=== PATIENT | female | born 1995 | race Caucasian/White ===

== ENCOUNTER 2019-01-08 01:58 | Emergency (ER) | payer BC, OTHER ==
[2019-01-08] MEDS ORDERED: Sodium Chloride 0.9% 1000 ML 1,000 ML IV STA ×2 (02:08→03:32)
[2019-01-08] MEDS ORDERED: ROCEPHIN 2 Gm-D5w 50ML BAG** 2 G/50 ML IVPB IV STA (02:14)
[2019-01-08] MEDS ORDERED: Sodium Chloride 0.9% 1000 ML 1,000 ML ONE ×3 (02:27→04:58)
[2019-01-08 02:37] LABS: BASOPHIL % 0.2 % (0.0-0.4); Basophil (Absolute #) 0.02 (0-0.4); Eosinophil % 0.6 % (0.00-5.0); Eosinophil (Absolute #) 0.07 (0-0.5); Granulocytes % 76.7 % (36.0-66.0); Hematocrit 41.1 % (35-47); Hemoglobin 13.6 gm/dl (12.0-16.0); Lymphocyte (Absolute #) 1.69 (1.0-4.6); Lymphocytes % 13.8 % (24.0-44.0); Mean Corpuscular Hemoglobin 31.8 pg (26-32); Mean Corpuscular Hgb Concent. 33.1 g/dl (32-36); Mean Platelet Volume 9.6 fl (6-9.5); Monocyte (Absolute #) 1.06 (0.0-1.3); Monocytes % 8.7 % (0.0-12.0); Platelet Count 280 K/mm3 (150-450); Red Blood Count 4.28 M/mm3 (4.1-5.4); Red Cell Distribution Width 13.4 % (11.5-14.0); White Blood Count 12.2 K/mm3 (4.0-10.5)
[2019-01-08] MEDS ORDERED: ROCEPHIN 2 Gm-D5w 50ML BAG** 2 G/50 ML IVPB IV ONE (02:37)
[2019-01-08 02:44] LABS: Appearance CLOUDY (CLEAR); Bilirubin NEGATIVE (NEGATIVE); Blood SMALL Ery/ul (0-5); Epithelial Cells RARE /HPF (FEW); Glucose NEGATIVE (NEGATIVE); Ketones NEGATIVE (NEGATIVE); Leukocyte Esterase LARGE (NEGATIVE); Mucus SLIGHT /HPF (NEGATIVE); Nitrite NEGATIVE (NEGATIVE); Protein,Urine Dip 100 (Negative); Specific Gravity 1.015 (1.005-1.025); Urobilinogen NEGATIVE mg/dL (0-1); WBC >100 /HPF (0-5)
[2019-01-08 03:21] LABS: ALBUMIN 5.1 g/dL (3.5-5.0); ALKALINE PHOSPHATASE 36 U/L (38-126); ANION GAP 18.4 MEQ/L (5-15); BLOOD UREA NITROGEN 20 mg/dL (7-17); CHLORIDE 103 mmol/L (98-107); Calcium 10.6 mg/dL (8.4-10.2); Carbon Dioxide 24 mmol/L (22-30); Creatinine 1 0.59 mg/dL (0.52-1.04); Glucose 83 mg/dL (74-106); Potassium 4.4 mmol/L (3.5-5.1); SGOT/AST 44 U/L (14-36); SGPT/ALT 57 U/L (0-35); SODIUM 141 mmol/L (137-145); Total Protein 8.8 g/dL (6.3-8.2)
[2019-01-08 03:47] VITALS: PULSE 134
[2019-01-08] MEDS ORDERED: TORAdol 30 mg Injection IV ONE (04:57)
[2019-01-08] MEDS ORDERED: TORAdol 30 mg Injection ONE (04:58)
--- NOTE | 2019-01-08 05:06 | ERPHSYRPT ---
- History of Present Illness Source: patient Exam Limitations: no limitations Patient Subjective Stated Complaint: Left sided flank pain Triage Nursing Assessment: Patient ambulated into ED and transferred self to bed. Patient A+O X 3. Patient skin pink, warm and dry. Patient complains of left sided flank pain radiating down to urethra 8/10. Patient complains of urgency and frequency upon urination. Abdomen round and soft with Hypoactive BS X 4. Lungs clear a/p tamar. Patient states her temp prior to coming 101.7. Physician History: Pt is a 23 y/o female with h/o dysuria, frequency and urgency for about 3 weeks. Pt was taking Azo OTC, with no improvement. Today the pain was worse and was radiating from the L flank down to suprapubic area. Pt denies F/C/S. No SOB or cough. No chest pain or palpitations. No N/V/D. Timing/Duration: week(s) Activites at Onset: none Quality: aching, cramping, sharpness Onset Location: left flank Pain Radiation: LLQ, suprapubic Severity of Pain-Max: moderate Severity of Pain-Current: moderate Prior abdominal problems: none Sexual intercourse history: non-contributory Modifying Factors: Improves With: analgesics, position Associated Symptoms: chills, dysuria, lower back pain Allergies/Adverse Reactions: No Known Drug Allergies Allergy (Verified 01/08/19 02:06) Hx Tetanus, Diphtheria Vaccination/Date Given: Yes Hx Influenza Vaccination/Date Given: Yes Hx Pneumococcal Vaccination/Date Given: No - Review of Systems Constitutional: Chills, Malaise Eyes: No Symptoms Ears, Nose, & Throat: No Symptoms Respiratory: No Cough, No Dyspnea Cardiac: No Chest Pain, No Edema, No Syncope Abdominal/Gastrointestinal: Abdominal Pain (suprapubic on the L.), No Nausea, No Vomiting, No Diarrhea Genitourinary Symptoms: Dysuria, Frequency, Urgency, Flank Pain (on L) Musculoskeletal: No Back Pain, No Neck Pain - Past Medical History Pertinent Past Medical History: Yes Endocrine Medical History: Diabetes Type II Psycho-Social History: Anxiety, Depression Other Medical History: pcos - Past Surgical History Past Surgical History: Yes Neuro Surgical History: No Pertinent History Cardiac: No Pertinent History Respiratory: No Pertinent History Gastrointestinal: No Pertinent History Genitourinary: No Pertinent History Musculoskeletal: No Pertinent History Female Surgical History: No Pertinent History Other Surgical History: tonsillectomy - Social History Smoking Status: Current every day smoker How long have you smoked: 10 years Exposure to second hand smoke: Yes Drug Use: none Patient Lives Alone: No - Female History Hx Last Menstrual Period: 2 months ago Hx Now: No - Nursing Vital Signs Nursing Vital Signs: Initial Vital Signs Temperature 99.8 F 01/08/19 02:07 Pulse Rate 147 H 01/08/19 02:07 Respiratory Rate 20 01/08/19 02:07 Blood Pressure 129/90 01/08/19 02:07 O2 Sat by Pulse Oximetry 100 01/08/19 02:07 Pain Scale Pain Intensity 8 - Physical Exam General Appearance: no apparent distress, alert Eye Exam: PERRL/EOMI, eyes nml inspection Ears, Nose, Throat Exam: normal ENT inspection, TMs normal, pharynx normal, moist mucous membranes Neck Exam: normal inspection, non-tender, supple, full range of motion Respiratory Exam: normal breath sounds, lungs clear, No respiratory distress Cardiovascular Exam: regular rate/rhythm, normal heart sounds, normal peripheral pulses Gastrointestinal/Abdomen Exam: soft, tenderness (of L flank and LLQ with suprapubic discomfort), No mass Back Exam: normal inspection, normal range of motion, No CVA tenderness, No vertebral tenderness Extremity Exam: normal inspection, normal range of motion, pelvis stable Neurologic Exam: alert, oriented x 3, cooperative, risk and insurance consultant II-XII nml as tested, normal mood/affect, sensation nml, No motor deficits Skin Exam: normal color, warm, dry Lymphatic Exam: No adenopathy SpO2: 99 - Course Nursing assessment & vital signs reviewed: Yes - CT Exams Abdomen/Pelvis CT Interpretation: Tele-radiologist Report (L hydronephrosis, L renal calculi) Ordered Tests: Active Orders 24 hr Category Date Time Status IV Insertion STAT Care 01/08/19 02:08 Active ABDOMEN AND PELVIS W/0 CONTRAS [CT] Stat Exams 01/08/19 02:09 Taken BLOOD CULTURE Stat Lab 01/08/19 03:25 Received CBC W DIFF Stat Lab 01/08/19 02:41 Completed CMP Stat Lab 01/08/19 02:41 Completed CULTURE,URINE Stat Lab 01/08/19 02:41 Received HCG,QUALITATIVE URINE Stat Lab 01/08/19 02:41 Completed UA W/RFX UR CULTURE Stat Lab 01/08/19 02:41 Completed Medication Summary Discontinued Medications Generic Name Dose Route Start Last Admin Trade Name Ben PRN Reason Stop Dose Admin Sodium Chloride 1,000 mls @ 999 mls/hr 01/08/19 02:08 01/08/19 02:35 Sodium Chloride 0.9% 1000 Ml IV 01/08/19 03:08 999 mls/hr .Q1H1M STA Administration Ceftriaxone Sodium/Dextrose 2 g in 50 mls @ 100 mls/hr 01/08/19 02:14 02:47 Rocephin 2 Gm-D5w 50ml Bag IV 01/08/19 02:43 100 mls/hr STAT STA 100 mls/hr Administration Sodium Chloride Confirm 01/08/19 02:27 Sodium Chloride 0.9% 1000 Ml Administered 01/08/19 02:28 Dose 1,000 mls @ ud .ROUTE .STK-MED ONE Ceftriaxone Sodium/Dextrose Confirm 01/08/19 02:37 Rocephin 2 Gm-D5w 50ml Bag Administered 01/08/19 02:38 Dose 2 g in 50 mls @ ud IV .STK-MED ONE Sodium Chloride 1,000 mls @ 999 mls/hr 01/08/19 03:32 01/08/19 03:45 Sodium Chloride 0.9% 1000 Ml IV 01/08/19 04:32 999 mls/hr .Q1H1M STA Administration Sodium Chloride Confirm 01/08/19 03:41 Sodium Chloride 0.9% 1000 Ml Administered 01/08/19 03:42 Dose 1,000 mls @ ud .ROUTE .STK-MED ONE Ketorolac Tromethamine 30 mg 01/08/19 04:57 Toradol 30 Mg Injection IV 01/08/19 04:58 STAT ONE Lab/Rad Data: Laboratory Result Diagrams 01/08/19 02:41 01/08/19 02:41 Laboratory Results 01/08/19 01/08/19 01/08/19 Range/Units 02:41 02:41 02:41 WBC (4.0-10.5) K/mm3 RBC (4.1-5.4) M/mm3 Hgb (12.0-16.0) gm/dl Hct (35-47) % MCV (78-100) fl MCH (26-32) pg MCHC (32-36) g/dl RDW (11.5-14.0) % Plt Count (150-450) K/mm3 MPV (6-9.5) fl Gran % (36.0-66.0) % Eos # (Auto) (0-0.5) Absolute Lymphs (auto) (1.0-4.6) Absolute Monos (auto) (0.0-1.3) Lymphocytes % (24.0-44.0) % Monocytes % (0.0-12.0) % Eosinophils % (0.00-5.0) % Basophils % (0.0-0.4) % Absolute Granulocytes (1.4-6.9) Basophils # (0-0.4) Sodium 141 (137-145) mmol/L Potassium 4.4 (3.5-5.1) mmol/L Chloride 103 (98-107) mmol/L Carbon Dioxide 24 (22-30) mmol/L Anion Gap 18.4 H (5-15) MEQ/L BUN 20 H (7-17) mg/dL Creatinine 0.59 (0.52-1.04) mg/dL Estimated GFR > 60.0 ML/MIN Glucose 83 (74-106) mg/dL Calcium 10.6 H (8.4-10.2) mg/dL Total Bilirubin 0.70 (0.2-1.3) mg/dL AST 44 H (14-36) U/L ALT 57 H (0-35) U/L Alkaline Phosphatase 36 L (38-126) U/L Serum Total Protein 8.8 H (6.3-8.2) g/dL Albumin 5.1 H (3.5-5.0) g/dL Urine Color YELLOW (YELLOW) Urine Appearance CLOUDY (CLEAR) Urine pH 8.0 (5-6) Ur Specific [place] 1.015 (1.005-1.025) Urine Protein 100 (Negative) Urine Ketones NEGATIVE (NEGATIVE) Urine Blood SMALL (0-5) Jeremi/ul Urine Nitrite NEGATIVE (NEGATIVE) Urine Bilirubin NEGATIVE (NEGATIVE) Urine Urobilinogen NEGATIVE (0-1) mg/dL Ur Leukocyte Esterase LARGE (NEGATIVE) Urine WBC (Auto) >100 (0-5) /HPF Urine RBC (Auto) 11-15 (0-2) /HPF U Epithel Cells (Auto) RARE (FEW) /HPF Urine Bacteria (Auto) NONE (NEGATIVE) /HPF Urine Mucus (Auto) SLIGHT (NEGATIVE) /HPF Urine Culture Reflexed YES (NO) Urine Glucose NEGATIVE (NEGATIVE) mg/dL Urine HCG, Qual NEGATIVE (Negative) 01/08/19 Range/Units 02:41 WBC 12.2 H (4.0-10.5) K/mm3 RBC 4.28 (4.1-5.4) M/mm3 Hgb 13.6 (12.0-16.0) gm/dl Hct 41.1 (35-47) % MCV 96.0 (78-100) fl MCH 31.8 (26-32) pg MCHC 33.1 (32-36) g/dl RDW 13.4 (11.5-14.0) % Plt Count 280 (150-450) K/mm3 MPV 9.6 H (6-9.5) fl Gran % 76.7 H (36.0-66.0) % Eos # (Auto) 0.07 (0-0.5) Absolute Lymphs (auto) 1.69 (1.0-4.6) Absolute Monos (auto) 1.06 (0.0-1.3) Lymphocytes % 13.8 L (24.0-44.0) % Monocytes % 8.7 (0.0-12.0) % Eosinophils % 0.6 (0.00-5.0) % Basophils % 0.2 (0.0-0.4) % Absolute Granulocytes 9.40 H (1.4-6.9) Basophils # 0.02 (0-0.4) Sodium (137-145) mmol/L Potassium (3.5-5.1) mmol/L Chloride (98-107) mmol/L Carbon Dioxide (22-30) mmol/L Anion Gap (5-15) MEQ/L BUN (7-17) mg/dL Creatinine (0.52-1.04) mg/dL Estimated GFR ML/MIN Glucose (74-106) mg/dL Calcium (8.4-10.2) mg/dL Total Bilirubin (0.2-1.3) mg/dL AST (14-36) U/L ALT (0-35) U/L Alkaline Phosphatase (38-126) U/L Serum Total Protein (6.3-8.2) g/dL Albumin (3.5-5.0) g/dL Urine Color (YELLOW) Urine Appearance (CLEAR) Urine pH (5-6) Ur Specific [place] (1.005-1.025) Urine Protein (Negative) Urine Ketones (NEGATIVE) Urine Blood (0-5) Jeremi/ul Urine Nitrite (NEGATIVE) Urine Bilirubin (NEGATIVE) Urine Urobilinogen (0-1) mg/dL Ur Leukocyte Esterase (NEGATIVE) Urine WBC (Auto) (0-5) /HPF Urine RBC (Auto) (0-2) /HPF U Epithel Cells (Auto) (FEW) /HPF Urine Bacteria (Auto) (NEGATIVE) /HPF Urine Mucus (Auto) (NEGATIVE) /HPF Urine Culture Reflexed (NO) Urine Glucose (NEGATIVE) mg/dL Urine HCG, Qual (Negative) - Progress Progress: improved Air Movement: good Progress Note: 01/08/19 05:07 Pt had lab work done, and 2 lit NSS bolus given. Pt has leukocytosis, UTI, and tachycardia. She met sepsis criteria, and Rocephin 2gr IV given, and blood cultures taken as well. Dr [facility] was [facility], and pt was accepted. Toradol IV 30mg was given. Blood Culture(s) Obtained: Yes Antibiotics given: Yes Will see patient in: other (Transfer to [facility]) - Departure Departure Disposition: Transfer Clinical Impression: Renal calculus, left, Hydronephrosis Condition: Stable Critical Care Time: No Referrals: JAYE MARTINEZ [Primary Care Provider] - Additional Instructions: Pt will be transferred to [facility]. Dr France is accepting.
[2019-01-08 05:09] VITALS: BP 107/62
[2019-01-08 05:10] VITALS: O2SAT 99
[2019-01-08] MEDS ORDERED: TYLENOL EXTRA STRENGTH 500 MG PO STA (05:10)
[2019-01-08] MEDS ORDERED: TYLENOL EXTRA STRENGTH 500 MG ONE (05:12)
[2019-01-08] MEDS ORDERED: Sodium Chloride 0.9% 1000 ML 1,000 ML IV SCH (05:15)
--- NOTE | 2019-01-08 09:28 | XRAY ---
Indication: Left flank pain and hematuria. Elevated WBC. Multiple contiguous axial images obtained through the abdomen and pelvis without contrast as ordered. Comparison: April 02, 2012. Lung bases demonstrates stable 2-3 mm left lower lobe subpleural noncalcified nodule favored to be benign given stability over the years. No infiltrate or effusion. Heart is not enlarged. Stomach is distended with food/fluid. Noncontrasted stomach and bowel loops appear nonobstructed. Normal appendix. No free fluid/air. Left kidney now appears edematous with 4-5 mm upper pole calculus. New mild hydronephrosis and mild hydroureter with ureter distention up to 8 mm along its course. Punctate calculus in the distal ureter approximately 3-4 cm proximal to the UVJ (image 81). Gallbladder contracted without gallstones. Again mild diffuse fatty liver. Spleen is enlarged measuring 13.3 cm in greatest axial dimension, previously 12.5 cm. Remaining liver, pancreas, spleen, adrenal glands, right kidney, right ureter, bladder, uterus, and aorta appear unremarkable for noncontrast exam. Osseous structures intact. No ventral or inguinal hernias. Impression: 1. Punctate calculus distal left ureter. Mild hydronephrosis and hydroureter consistent with obstructive uropathy. Additional left renal micro-calculus. 2. Again incidental fatty liver and splenomegaly. 3. Remaining CT abdomen/pelvis without contrast exam is negative. Comment: Preliminary interpretation was made by [facility]. No critical discrepancy. CT DI 23.57
== END 2019-01-08 06:00 | disposition short-term general hospital (02) ==
LOC: ED 01:58
DX: N20.0 Calculus of kidney (principal); N13.30 Unspecified hydronephrosis
CPT/HCPCS: 36000; 36415; 74176; 80053; 81001; 84703; 85025; 87040; 87077; 87086; 87186; 96360; 96361; 96365; 96374; 99285; J0696; J1885; A9270-GY

== ENCOUNTER 2023-07-22 14:45 | Observation (INO) | payer BC, OTHER ==
[2023-07-22] MEDS ORDERED: Zofran 4 MG/2 ML VIAL IV ONE (15:20)
[2023-07-22] MEDS ORDERED: MORPHINE SULFATE 4 MG INJ IV ONE (15:20)
[2023-07-22] MEDS ORDERED: Sodium Chloride 0.9% 1000 ML 1,000 ML IV STA ×2 (15:20→17:51)
[2023-07-22] MEDS ORDERED: Zofran 4 MG/2 ML VIAL ONE (15:30)
[2023-07-22] MEDS ORDERED: MORPHINE SULFATE 4 MG INJ ONE (15:30)
[2023-07-22] MEDS ORDERED: Sodium Chloride 0.9% 1000 ML 1,000 ML ONE ×2 (15:30→17:54)
[2023-07-22 15:35] LABS: Absolute Neutrophil Ct (ANC) 17.52 x10^3/uL (1.4-6.9); BASOPHIL % 0.3 % (0.0-0.4); Basophil (Absolute #) 0.05 x10^3/uL (0-0.4); Eosinophil % 0.1 % (0.00-5.0); Eosinophil (Absolute #) 0.01 x10^3/uL (0-0.5); Hematocrit 35.9 % (35-47); Hemoglobin 11.4 g/dL (12.0-16.0); IMMATURE GRAN # 0.18 x10^3u/L (0.00-0.03); IMMATURE GRAN % 0.9 % (0.00-0.4); Lymphocyte (Absolute #) 1.34 x10^3/uL (1.0-4.6); Lymphocytes % 6.9 % (24.0-44.0); Mean Cell Volume 97.6 fL (78-100); Mean Corpuscular Hgb Concent. 31.8 g/dL (32-36); Mean Platelet Volume 8.6 fL (7.5-11.0); Monocyte (Absolute #) 0.35 x10^3/uL (0.0-1.3); Monocytes % 1.8 % (0.0-12.0); Platelet Count 436 x10^3/uL (150-450); Red Blood Count 3.68 x10^6/uL (4.1-5.4); Red Cell Distribution Width 12.6 % (11.5-14.0); White Blood Count 19.5 x10^3/uL (4.0-10.5)
[2023-07-22 15:49] LABS: ALBUMIN 4.2 g/dL (3.5-5.0); ANION GAP 14.9 MEQ/L (5-15); BILIRUBIN,TOTAL 0.8 mg/dL (0.2-1.3); Calcium 9.3 mg/dL (8.4-10.2); Creatinine 1 0.39 mg/dL (0.52-1.04); EST GLOMERULAR FILTRATION RATE 138.2 ML/MIN; Potassium 3.6 mmol/L (3.5-5.1); Total Protein 7.6 g/dL (6.3-8.2)
[2023-07-22 15:50] LABS: HCG SERUM TEST NEGATIVE (NEGATIVE)
--- NOTE | 2023-07-22 16:23 | ERPHSYRPT ---
- History of Present Illness Time Seen by Provider: 07/22/23 15:15 Historian: patient, EMS Exam Limitations: no limitations Patient Subjective Stated Complaint: pt here for abd pain diffuse since 0300 this am, with some nasuea and vomiting. had 2 doses of pain meds in ambulance Triage Nursing Assessment: pt arrived per ems, alert, yelling out in pain, skin w/d/p, abd soft, tender to touch, no edema noted Physician History: 28 years old female with no history of abdominal surgeries presented in the ER with right-sided abdominal pain waking her up from sleep around 3 AM, continuous, moderate to severe sharp throbbing and becoming more generalized with associated nausea and couple of episodes of nonprojectile, nonbilious vomiting without hematemesis. Denies any diarrhea. Patient has received 2 units doses of pain medication while in the ER by EMS. No fever or chills reported. Allergies/Adverse Reactions: prochlorperazine [From Compazine] Allergy (Verified 07/22/23 14:52) Home Medications: No Reportable Medications [No Reported Medications] 07/22/23 [History] Hx Tetanus, Diphtheria Vaccination/Date Given: Yes Hx Influenza Vaccination/Date Given: No Hx Pneumococcal Vaccination/Date Given: No Immunizations Up to Date: Yes Travel Risk - International Travel Have you traveled outside of the country in past 3 weeks: No - Coronavirus Screening Are you exhibiting any of the following symptoms?: Yes Symptoms: Fever, Vomiting/Diarrhea Close contact with a COVID-19 positive Pt in past 14-21 Days: No - Vaccine Status Have you recieved a Covid-19 vaccination: No - Review of Systems Constitutional: No Symptoms Eyes: No Symptoms Ears, Nose, & Throat: No Symptoms Respiratory: No Symptoms Cardiac: No Symptoms Abdominal/Gastrointestinal: Abdominal Pain, Nausea, Vomiting Genitourinary Symptoms: No Symptoms Musculoskeletal: No Symptoms Skin: No Symptoms Neurological: No Symptoms Endocrine: No Symptoms Hematologic/Lymphatic: No Symptoms Immunological/Allergic: No Symptoms - Past Medical History Pertinent Past Medical History: Yes Endocrine Medical History: Diabetes Type II Psycho-Social History: Anxiety, Depression Other Medical History: pcos - Past Surgical History Past Surgical History: Yes Neuro Surgical History: No Pertinent History Cardiac: No Pertinent History Respiratory: No Pertinent History Gastrointestinal: No Pertinent History Genitourinary: No Pertinent History Musculoskeletal: No Pertinent History Female Surgical History: No Pertinent History Other Surgical History: tonsillectomy - Social History Smoking Status: Current every day smoker How long have you smoked: 10 years Exposure to second hand smoke: Yes Drug Use: none Patient Lives Alone: No - Female History Hx Last Menstrual Period: last week Hx Now: (unkn) - Nursing Vital Signs Nursing Vital Signs: Initial Vital Signs Temperature 99.3 F 07/22/23 14:53 Pulse Rate 104 H 07/22/23 14:53 Respiratory Rate 18 07/22/23 14:53 Blood Pressure 120/78 07/22/23 14:53 O2 Sat by Pulse Oximetry 99 07/22/23 14:53 Pain Scale Pain Intensity 8 - Physical Exam General Appearance: no apparent distress, alert Eye Exam: PERRL/EOMI Ears, Nose, Throat Exam: normal ENT inspection Neck Exam: normal inspection, non-tender, supple, full range of motion Respiratory Exam: normal breath sounds, lungs clear Cardiovascular Exam: regular rate/rhythm, normal heart sounds Gastrointestinal/Abdomen Exam: soft, tenderness (Right side/periumbilical area), guarding, No normal bowel sounds Extremity Exam: normal inspection, normal range of motion Neurologic Exam: alert, oriented x 3, cooperative Skin Exam: normal color SpO2 Interpretation: normal SpO2: 99 O2 Delivery: Room Air Ordered Tests: Active Orders 24 hr Category Date Time Status IV Insertion STAT Care 07/22/23 15:20 Active NPO (ED) STAT Care 07/22/23 15:20 Active ABDOMEN AND PELVIS W CONTRAST [CT] Stat Exams 07/22/23 15:20 Completed CBC W DIFF Stat Lab 07/22/23 15:30 Completed CMP Stat Lab 07/22/23 15:30 Completed CULTURE,URINE Stat Lab 07/22/23 18:01 Received HCG QUALITATIVE, SERUM Stat Lab 07/22/23 15:30 Completed LIPASE Stat Lab 07/22/23 15:30 Completed Lactic Acid Stat Lab 07/22/23 19:18 Ordered PROCALCITONIN Stat Lab 07/22/23 15:30 Received UA W/RFX UR CULTURE Stat Lab 07/22/23 18:01 Completed Urine Triage Profile Stat Lab 07/22/23 18:03 Completed Transfer Order Routine Transfer 07/22/23 Ordered Medication Summary Discontinued Medications Generic Name Dose Route Start Last Admin Trade Name Freq PRN Reason Stop Dose Admin Hydromorphone HCl 0.5 mg 07/22/23 19:18 07/22/23 19:21 Hydromorphone 1 Mg/1ml Inj IV 07/22/23 19:19 0.5 mg STAT ONE Administration Hydromorphone HCl Confirm 07/22/23 19:20 Hydromorphone 1 Mg/1ml Inj Administered 07/22/23 19:21 Dose 1 mg .ROUTE .STK-MED ONE Sodium Chloride 1,000 mls @ 999 mls/hr 07/22/23 15:20 07/22/23 16:33 Sodium Chloride 0.9% 1000 Ml IV 07/22/23 16:20 Infused .Q1H1M STA Infusion Sodium Chloride Confirm 07/22/23 15:30 Sodium Chloride 0.9% 1000 Ml Administered 07/22/23 15:31 Dose 1,000 mls @ ud .ROUTE .STK-MED ONE Sodium Chloride 1,000 mls @ 999 mls/hr 07/22/23 17:51 07/22/23 19:00 Sodium Chloride 0.9% 1000 Ml IV 07/22/23 18:51 Infused .Q1H1M STA Infusion Sodium Chloride Confirm 07/22/23 17:54 Sodium Chloride 0.9% 1000 Ml Administered 07/22/23 17:55 Dose 1,000 mls @ ud .ROUTE .STK-MED ONE Ceftriaxone Sodium/Dextrose 2 g in 50 mls @ 100 mls/hr 07/22/23 19:11 07/22/23 19:22 Rocephin 2 Gm-D5w 50ml Bag IV 07/22/23 19:40 100 ml/hr STAT STA 100 mls/hr Administration Ceftriaxone Sodium/Dextrose Confirm 07/22/23 19:15 Rocephin 2 Gm-D5w 50ml Bag Administered 07/22/23 19:16 Dose 2 g in 50 mls @ ud IV .STK-MED ONE Ketorolac Tromethamine 30 mg 07/22/23 18:02 07/22/23 18:08 Ketorolac Tromethamine 30 Mg/Ml Inj IV 07/22/23 18:03 30 mg STAT ONE Administration Ketorolac Tromethamine Confirm 07/22/23 18:06 Ketorolac Tromethamine 30 Mg/Ml Inj Administered 07/22/23 18:07 Dose 30 mg .ROUTE .STK-MED ONE Morphine Sulfate 4 mg 07/22/23 15:20 07/22/23 15:32 Morphine Sulfate 4 Mg/Ml Injection IV 07/22/23 15:21 4 mg STAT ONE Administration Morphine Sulfate Confirm 07/22/23 15:30 Morphine Sulfate 4 Mg/Ml Injection Administered 07/22/23 15:31 Dose 4 mg .ROUTE .STK-MED ONE Ondansetron HCl 4 mg 07/22/23 15:20 07/22/23 15:32 Ondansetron Hcl 4 Mg/2 Ml Vial IV 07/22/23 15:21 4 mg STAT ONE Administration Ondansetron HCl Confirm 07/22/23 15:30 Ondansetron Hcl 4 Mg/2 Ml Vial Administered 07/22/23 15:31 Dose 4 mg .ROUTE .STK-MED ONE Lab/Rad Data: Laboratory Result Diagrams 07/22/23 15:30 07/22/23 15:30 Laboratory Results 07/22/23 07/22/23 07/22/23 Range/Units 18:03 18:01 15:30 WBC (4.0-10.5) x10^3/uL RBC (4.1-5.4) x10^6/uL Hgb (12.0-16.0) g/dL Hct (35-47) % MCV (78-100) fL MCH (26-32) pg MCHC (32-36) g/dL RDW (11.5-14.0) % Plt Count (150-450) x10^3/uL MPV (7.5-11.0) fL Gran % (36.0-66.0) % Immature Gran % (Auto) (0.00-0.4) % Nucleat RBC Rel Count (0.00-0.1) % Eos # (Auto) (0-0.5) x10^3/uL Immature Gran # (Auto) (0.00-0.03) x10^3u/L Absolute Lymphs (auto) (1.0-4.6) x10^3/uL Absolute Monos (auto) (0.0-1.3) x10^3/uL Absolute Nucleated RBC (0.00-0.01) x10^3u/L Lymphocytes % (24.0-44.0) % Monocytes % (0.0-12.0) % Eosinophils % (0.00-5.0) % Basophils % (0.0-0.4) % Absolute Granulocytes (1.4-6.9) x10^3/uL Basophils # (0-0.4) x10^3/uL Sodium (137-145) mmol/L Potassium (3.5-5.1) mmol/L Chloride (98-107) mmol/L Carbon Dioxide (22-30) mmol/L Anion Gap (5-15) MEQ/L BUN (7-17) mg/dL Creatinine (0.52-1.04) mg/dL Estimated GFR ML/MIN Glucose (74-106) mg/dL Calcium (8.4-10.2) mg/dL Total Bilirubin (0.2-1.3) mg/dL AST (14-36) U/L ALT (0-35) U/L Alkaline Phosphatase (38-126) U/L Serum Total Protein (6.3-8.2) g/dL Albumin (3.5-5.0) g/dL Lipase (23-300) U/L Serum HCG, Qual NEGATIVE (NEGATIVE) Urine Color Yellow (Yellow) Urine Appearance Clear (Clear) Urine pH 7.5 (4.6-8.0) Ur Specific [place] >=1.030 A (1.005-1.030) Urine Protein Negative (Negative) Urine Glucose (UA) Negative (Negative) mg/dL Urine Ketones Negative (Negative) Urine Blood Trace (Negative) Urine Nitrite Positive A (Negative) Urine Bilirubin Negative (Negative) Urine Urobilinogen 0.2 (0.2) mg/dL Ur Leukocyte Esterase Small A (Negative) U Hyaline Cast (Auto) NONE SEEN (0-2) /LPF Urine Microscopic RBC 3-5 (0-5) /HPF Urine Microscopic WBC 21-50 A (0-5) /HPF Ur Epithelial Cells Rare (None Seen) /HPF Urine Bacteria Many A (None Seen) /HPF Urine Yeast (Budding) Few A (None Seen) /HPF Urine Culture Reflexed YES (NO) Urine Opiates Level POSITIVE A (NEGATIVE) Ur Methadone NEGATIVE (NEGATIVE) Urine Barbiturates NEGATIVE (NEGATIVE) Ur Phencyclidine (PCP) NEGATIVE (NEGATIVE) Urine Amphetamine NEGATIVE (NEGATIVE) U Benzodiazepine Level NEGATIVE (NEGATIVE) Urine Cocaine NEGATIVE (NEGATIVE) Urine Marijuana (THC) NEGATIVE (NEGATIVE) 07/22/23 07/22/23 Range/Units 15:30 15:30 WBC 19.5 H (4.0-10.5) x10^3/uL RBC 3.68 L (4.1-5.4) x10^6/uL Hgb 11.4 L (12.0-16.0) g/dL Hct 35.9 (35-47) % MCV 97.6 (78-100) fL MCH 31.0 (26-32) pg MCHC 31.8 L (32-36) g/dL RDW 12.6 (11.5-14.0) % Plt Count 436 (150-450) x10^3/uL MPV 8.6 (7.5-11.0) fL Gran % 90.0 H (36.0-66.0) % Immature Gran % (Auto) 0.9 H (0.00-0.4) % Nucleat RBC Rel Count 0.0 (0.00-0.1) % Eos # (Auto) 0.01 (0-0.5) x10^3/uL Immature Gran # (Auto) 0.18 H (0.00-0.03) x10^3u/L Absolute Lymphs (auto) 1.34 (1.0-4.6) x10^3/uL Absolute Monos (auto) 0.35 (0.0-1.3) x10^3/uL Absolute Nucleated RBC 0.00 (0.00-0.01) x10^3u/L Lymphocytes % 6.9 L (24.0-44.0) % Monocytes % 1.8 (0.0-12.0) % Eosinophils % 0.1 (0.00-5.0) % Basophils % 0.3 (0.0-0.4) % Absolute Granulocytes 17.52 H (1.4-6.9) x10^3/uL Basophils # 0.05 (0-0.4) x10^3/uL Sodium 134 L (137-145) mmol/L Potassium 3.6 (3.5-5.1) mmol/L Chloride 101 (98-107) mmol/L Carbon Dioxide 22 (22-30) mmol/L Anion Gap 14.9 (5-15) MEQ/L BUN 14 (7-17) mg/dL Creatinine 0.39 L (0.52-1.04) mg/dL Estimated GFR 138.2 ML/MIN Glucose 125 H (74-106) mg/dL Calcium 9.3 (8.4-10.2) mg/dL Total Bilirubin 0.80 (0.2-1.3) mg/dL AST 20 (14-36) U/L ALT 22 (0-35) U/L Alkaline Phosphatase 39 (38-126) U/L Serum Total Protein 7.6 (6.3-8.2) g/dL Albumin 4.2 (3.5-5.0) g/dL Lipase 21 L (23-300) U/L Serum HCG, Qual (NEGATIVE) Urine Color (Yellow) Urine Appearance (Clear) Urine pH (4.6-8.0) Ur Specific [place] (1.005-1.030) Urine Protein (Negative) Urine Glucose (UA) (Negative) mg/dL Urine Ketones (Negative) Urine Blood (Negative) Urine Nitrite (Negative) Urine Bilirubin (Negative) Urine Urobilinogen (0.2) mg/dL Ur Leukocyte Esterase (Negative) U Hyaline Cast (Auto) (0-2) /LPF Urine Microscopic RBC (0-5) /HPF Urine Microscopic WBC (0-5) /HPF Ur Epithelial Cells (None Seen) /HPF Urine Bacteria (None Seen) /HPF Urine Yeast (Budding) (None Seen) /HPF Urine Culture Reflexed (NO) Urine Opiates Level (NEGATIVE) Ur Methadone (NEGATIVE) Urine Barbiturates (NEGATIVE) Ur Phencyclidine (PCP) (NEGATIVE) Urine Amphetamine (NEGATIVE) U Benzodiazepine Level (NEGATIVE) Urine Cocaine (NEGATIVE) Urine Marijuana (THC) (NEGATIVE) - Progress Progress: pain not gone completely, re-examined Progress Note: 07/22/23 19:43 28 years old female with no history of abdominal surgeries presented in the ER with right-sided abdominal pain waking her up from sleep around 3 AM, continuous, moderate to severe sharp throbbing and becoming more generalized with associated nausea and couple of episodes of nonprojectile, nonbilious vomiting without hematemesis. Denies any diarrhea. Patient has received 2 units doses of pain medication while in the ER by EMS. No fever or chills reported. She is given fluids and symptomatic treatment for pain multiple time but still having abdominal pain. Workup showed white count of 19, fairly unremarkable chemistries, patient does have UTI and given a dose of Rocephin. CT abdomen pelvis with contrast is negative for any acute abdominal pelvic findings. Patie nt has normal bicarb. I do not know the exact cause of her pain and elevation of white count, believed patient needs further workup. Discussed with Dr. Amber Wells, reviewed history, workup and patient is being admitted. Discussed with .: Ewa Will see patient in: hospital (observation) Counseled pt/family regarding: lab results, diagnosis, rad results Medical Desision Making - Independent Historian Additional History obtained from: Audiology Assistant/EMT - Discussion of managment Care discussed with:: hospitalist Reviewed:: Test results Agreed on:: Treatment plan Will see patient: In office - Diagnostic Testing Diagnostic test were ordered, analyzed, and reviewed by me: Yes Radiological Interpretation: Reviewed by me - Risk of complications The pt has a high risk of morbidity or mortality based on: Decision regarding hospitilization or escalation of hosp level of care - Departure Departure Disposition: Observation Clinical Impression: Acute UTI, Sudden onset of severe abdominal pain Condition: Stable Critical Care Time: No Referrals: DOCTOR,NO FAMILY [Primary Care Provider] - Follow up/PCP as directed
--- NOTE | 2023-07-22 17:54 | XRAY ---
CLINICAL HISTORY:right side pain COMPARISON:None TECHNIQUE:CT scan of the abdomen and pelvis was performed with 100ml Isovue 370 IV contrast. Coronal and sagittal reconstructive images were also obtained. FINDINGS: Abdomen: The liver is enlarged measuring 21.4 cm craniocaudally. No diffuse or focal parenchymal abnormality. The portal vein, intrahepatic biliary radicals, and the bile ducts are normal. The spleen, pancreas, and adrenal glands are unremarkable. The kidneys are normal in size and shape. No cysts, mass, or hydronephrosis. There is a 4.0 mm calculus (1237 HU) in the superior calyx of the left kidney. Another hyperdensity measuring 2.0 mm is seen in the superior calyx of the right kidney, may also represent a calculus. The gallbladder is distended and shows no definite stones. There is no evidence of wall thickening/ pericholecystic collection. The ascending colon, the transverse colon, the descending colon, visualized small bowel loops are unremarkable. The appendix is not clearly visualized. There is no evidence of significant enlargement of the mesenteric or retroperitoneal lymph nodes. Pelvis: The urinary bladder is unremarkable. The uterus is normal. The right and left ovaries measure 3.5 x 2.7 cm and 4.4 x 2.5 cm, respectively. The pelvic vasculature is unremarkable. Multiple small calcifications are seen within the pelvic cavity, likely phleboliths. No evidence of pelvic lymphadenopathy. There are multilevel Schmorl's nodes at the lower thoracic spine. IMPRESSION: 1. Hepatomegaly 2. Non-obstructing nephrolithiasis, bilateral 3. Multilevel Schmorl's nodes at the lower thoracic spine. 4. No other remarkable findings in the abdomen. Electronically Signed by: Davi Frank MD. (07/22/2023 17:49:49 EST)
[2023-07-22] MEDS ORDERED: TORAdol 30 mg Injection IV ONE (18:02)
[2023-07-22] MEDS ORDERED: TORAdol 30 mg Injection ONE (18:06)
[2023-07-22 18:32] LABS: Amphetamine,Urine NEGATIVE (NEGATIVE); Barbiturate,Urine NEGATIVE (NEGATIVE); Benzodiazepine,Urine NEGATIVE (NEGATIVE); Cocaine,Urine NEGATIVE (NEGATIVE); Methadone,Urine NEGATIVE (NEGATIVE); Opiate,Urine POSITIVE (NEGATIVE); PCP,Urine NEGATIVE (NEGATIVE); THC,Urine NEGATIVE (NEGATIVE)
[2023-07-22 18:41] LABS: Appearance Clear (Clear); Bacteria Many /HPF (None Seen); Bilirubin Negative (Negative); Blood Trace (Negative); Epithelial Cells Rare /HPF (None Seen); Glucose, Urine Negative (Negative); Hyaline Casts NONE SEEN /LPF (0-2); Ketones Negative (Negative); Leukocyte Esterase Small (Negative); Nitrite Positive (Negative); Ph 7.5 (4.6-8.0); Protein,Urine Dip Negative (Negative); Specific Gravity >=1.030 (1.005-1.030); Urobilinogen 0.2 mg/dL (0.2); WBC 21-50 /HPF (0-5)
[2023-07-22 18:42] LABS: ADD URINE CULTURE? YES (NO); Budding Yeast Few /HPF (None Seen)
[2023-07-22] MEDS ORDERED: ROCEPHIN 2 Gm-D5w 50ML BAG** 2 G/50 ML IVPB IV STA (19:11)
[2023-07-22] MEDS ORDERED: ROCEPHIN 2 Gm-D5w 50ML BAG** 2 G/50 ML IVPB IV ONE (19:15)
[2023-07-22] MEDS ORDERED: Hydromorphone 1 mg/ml Injection IV ONE (19:18)
[2023-07-22] MEDS ORDERED: Hydromorphone 1 mg/ml Injection ONE (19:20)
--- NOTE | 2023-07-22 20:30 | PCM.HP ---
History of Present Illness - Chief Complaint Chief Complaint: Acute UTI, severe abdominal pain History of Present Illness: is a 28 year old female with history of kidney stones who presents with one day of acute generalized abdominal pain, associated with some loose stools. Denies fevers, nausea, vomiting. No recent sick contacts or travel. Reports some burning with urination. Has had kidney stones in the past that caused pain but not to this level. - Review of Systems Constitutional: No Fever, No Chills Eyes: No Symptoms Ears, Nose, & Throat: No Symptoms Respiratory: No Cough, No Short Of Breath Cardiac: No Chest Pain, No Edema, No Syncope Abdominal/Gastrointestinal: No Abdominal Pain, No Nausea, No Vomiting, No Diarrhea Genitourinary Symptoms: No Dysuria Musculoskeletal: No Back Pain, No Neck Pain Skin: No Rash Neurological: No Dizziness, No Focal Weakness, No Sensory Changes Psychological: No Symptoms Endocrine: No Symptoms Hematologic/Lymphatic: No Symptoms Immunological/Allergic: No Symptoms Medications & Allergies Home Medications: Home Medication List No Reportable Medications [No Reported Medications] 07/22/23 [History Confirmed 07/22/23] Allergies/Adverse Reactions: Allergies Allergy/AdvReac Type Severity Reaction Status Date / Time prochlorperazine Allergy Verified 07/22/23 20:18 [From Compazine] - Past Medical History Past Medical History: Yes Endocrine Medical History: Diabetes Type II Pyscho-Social History: Anxiety, Depression Comment: pcos - Female History Hx Last Menstrual Period: last week Are you now?: (unkn) - Past Surgical History Past Surgical History: Yes Neuro Surgical History: No Pertinent History Cardiac History: No Pertinent History Respiratory Surgery: No Pertinent History GI Surgical History: No Pertinent History Genitourinary Surgical Hx: No Pertinent History Musculskeletal Surgical Hx: No Pertinent History Female Surgical History: No Pertinent History Other Surgical History: tonsillectomy - Social History Smoking Status: Current every day smoker How long have you smoked: 10 years Exposure to second hand smoke: Yes Alcohol: Rarely Drug Use: none - Physical Exam Vital Signs: Vital Signs - 24 hr Temp Pulse Resp BP BP Pulse Ox 07/22/23 20:04 97.3 F 100 H 20 106/57 99 07/22/23 19:45 99 07/22/23 19:00 110 H 26 H 96/56 95 07/22/23 18:30 117 H 32 H 108/57 95 07/22/23 18:13 111 H 28 H 104/67 96 07/22/23 18:12 111 H 20 96 07/22/23 18:10 102 H 24 98 07/22/23 18:09 114 H 25 H 99 07/22/23 17:30 121 H 30 H 96/55 07/22/23 17:00 118 H 28 H 102/56 07/22/23 16:30 120 H 24 103/50 96 07/22/23 16:25 117 H 29 H 114/50 07/22/23 16:00 111/77 98 07/22/23 15:32 114 H 17 109/73 100 07/22/23 14:53 99.3 F 104 H 18 120/78 99 General Appearance: no apparent distress, alert Neurologic Exam: alert, oriented x 3, cooperative, normal mood/affect, nml cerebellar function, nml station & gait, sensation nml, No motor deficits Eye Exam: PERRL/EOMI, eyes nml inspection Ears, Nose, Throat Exam: normal ENT inspection, TMs normal, pharynx normal, moist mucous membranes Neck Exam: normal inspection, non-tender, supple, full range of motion Respiratory Exam: normal breath sounds, lungs clear, No respiratory distress Cardiovascular Exam: regular rate/rhythm, normal heart sounds, normal peripheral pulses Gastrointestinal/Abdomen Exam: soft, normal bowel sounds, No tenderness, No mass Back Exam: normal inspection, normal range of motion, No CVA tenderness, No vertebral tenderness Extremity Exam: normal inspection, normal range of motion, pelvis stable Skin Exam: normal color, warm, dry, No rash Lymphatic Exam: No adenopathy Results - Labs Lab/Micro Results: Lab Results-Last 24 Hours 07/22/23 07/22/23 07/22/23 Range/Units 15:30 15:30 15:30 WBC 19.5 H (4.0-10.5) x10^3/uL RBC 3.68 L (4.1-5.4) x10^6/uL Hgb 11.4 L (12.0-16.0) g/dL Hct 35.9 (35-47) % MCV 97.6 (78-100) fL MCH 31.0 (26-32) pg MCHC 31.8 L (32-36) g/dL RDW 12.6 (11.5-14.0) % Plt Count 436 (150-450) x10^3/uL MPV 8.6 (7.5-11.0) fL Gran % 90.0 H (36.0-66.0) % Immature Gran % (Auto) 0.9 H (0.00-0.4) % Nucleat RBC Rel Count 0.0 (0.00-0.1) % Eos # (Auto) 0.01 (0-0.5) x10^3/uL Immature Gran # (Auto) 0.18 H (0.00-0.03) x10^3u/L Absolute Lymphs (auto) 1.34 (1.0-4.6) x10^3/uL Absolute Monos (auto) 0.35 (0.0-1.3) x10^3/uL Absolute Nucleated RBC 0.00 (0.00-0.01) x10^3u/L Lymphocytes % 6.9 L (24.0-44.0) % Monocytes % 1.8 (0.0-12.0) % Eosinophils % 0.1 (0.00-5.0) % Basophils % 0.3 (0.0-0.4) % Absolute Granulocytes 17.52 H (1.4-6.9) x10^3/uL Basophils # 0.05 (0-0.4) x10^3/uL Sodium 134 L (137-145) mmol/L Potassium 3.6 (3.5-5.1) mmol/L Chloride 101 (98-107) mmol/L Carbon Dioxide 22 (22-30) mmol/L Anion Gap 14.9 (5-15) MEQ/L BUN 14 (7-17) mg/dL Creatinine 0.39 L (0.52-1.04) mg/dL Estimated GFR 138.2 ML/MIN Glucose 125 H (74-106) mg/dL Calcium 9.3 (8.4-10.2) mg/dL Total Bilirubin 0.80 (0.2-1.3) mg/dL AST 20 (14-36) U/L ALT 22 (0-35) U/L Alkaline Phosphatase 39 (38-126) U/L Serum Total Protein 7.6 (6.3-8.2) g/dL Albumin 4.2 (3.5-5.0) g/dL Lipase 21 L (23-300) U/L Procalcitonin (0.030-0.080) ng/mL Serum HCG, Qual NEGATIVE (NEGATIVE) Urine Color (Yellow) Urine Appearance (Clear) Urine pH (4.6-8.0) Ur Specific [place] [address] (1.005-1.030) Urine Protein (Negative) Urine Glucose (UA) (Negative) mg/dL Urine Ketones (Negative) Urine Blood (Negative) Urine Nitrite (Negative) Urine Bilirubin (Negative) Urine Urobilinogen (0.2) mg/dL Ur Leukocyte Esterase (Negative) U Hyaline Cast (Auto) (0-2) /LPF Urine Microscopic RBC (0-5) /HPF Urine Microscopic WBC (0-5) /HPF Ur Epithelial Cells (None Seen) /HPF Urine Bacteria (None Seen) /HPF Urine Yeast (Budding) (None Seen) /HPF Urine Culture Reflexed (NO) Urine Opiates Level (NEGATIVE) Ur Methadone (NEGATIVE) Urine Barbiturates (NEGATIVE) Ur Phencyclidine (PCP) (NEGATIVE) Urine Amphetamine (NEGATIVE) U Benzodiazepine Level (NEGATIVE) Urine Cocaine (NEGATIVE) Urine Marijuana (THC) (NEGATIVE) 07/22/23 07/22/23 07/22/23 Range/Units 15:30 18:01 18:03 WBC (4.0-10.5) x10^3/uL RBC (4.1-5.4) x10^6/uL Hgb (12.0-16.0) g/dL Hct (35-47) % MCV (78-100) fL MCH (26-32) pg MCHC (32-36) g/dL RDW (11.5-14.0) % Plt Count (150-450) x10^3/uL MPV (7.5-11.0) fL Gran % (36.0-66.0) % Immature Gran % (Auto) (0.00-0.4) % Nucleat RBC Rel Count (0.00-0.1) % Eos # (Auto) (0-0.5) x10^3/uL Immature Gran # (Auto) (0.00-0.03) x10^3u/L Absolute Lymphs (auto) (1.0-4.6) x10^3/uL Absolute Monos (auto) (0.0-1.3) x10^3/uL Absolute Nucleated RBC (0.00-0.01) x10^3u/L Lymphocytes % (24.0-44.0) % Monocytes % (0.0-12.0) % Eosinophils % (0.00-5.0) % Basophils % (0.0-0.4) % Absolute Granulocytes (1.4-6.9) x10^3/uL Basophils # (0-0.4) x10^3/uL Sodium (137-145) mmol/L Potassium (3.5-5.1) mmol/L Chloride (98-107) mmol/L Carbon Dioxide (22-30) mmol/L Anion Gap (5-15) MEQ/L BUN (7-17) mg/dL Creatinine (0.52-1.04) mg/dL Estimated GFR ML/MIN Glucose (74-106) mg/dL Calcium (8.4-10.2) mg/dL Total Bilirubin (0.2-1.3) mg/dL AST (14-36) U/L ALT (0-35) U/L Alkaline Phosphatase (38-126) U/L Serum Total Protein (6.3-8.2) g/dL Albumin (3.5-5.0) g/dL Lipase (23-300) U/L Procalcitonin 0.548 H (0.030-0.080) ng/mL Serum HCG, Qual (NEGATIVE) Urine Color Yellow (Yellow) Urine Appearance Clear (Clear) Urine pH 7.5 (4.6-8.0) Ur Specific [place] [address] >=1.030 A (1.005-1.030) Urine Protein Negative (Negative) Urine Glucose (UA) Negative (Negative) mg/dL Urine Ketones Negative (Negative) Urine Blood Trace (Negative) Urine Nitrite Positive A (Negative) Urine Bilirubin Negative (Negative) Urine Urobilinogen 0.2 (0.2) mg/dL Ur Leukocyte Esterase Small A (Negative) U Hyaline Cast (Auto) NONE SEEN (0-2) /LPF Urine Microscopic RBC 3-5 (0-5) /HPF Urine Microscopic WBC 21-50 A (0-5) /HPF Ur Epithelial Cells Rare (None Seen) /HPF Urine Bacteria Many A (None Seen) /HPF Urine Yeast (Budding) Few A (None Seen) /HPF Urine Culture Reflexed YES (NO) Urine Opiates Level POSITIVE A (NEGATIVE) Ur Methadone NEGATIVE (NEGATIVE) Urine Barbiturates NEGATIVE (NEGATIVE) Ur Phencyclidine (PCP) NEGATIVE (NEGATIVE) Urine Amphetamine NEGATIVE (NEGATIVE) U Benzodiazepine Level NEGATIVE (NEGATIVE) Urine Cocaine NEGATIVE (NEGATIVE) Urine Marijuana (THC) NEGATIVE (NEGATIVE) - Radiology Impressions Radiology Exams & Impressions: Radiology Procedures Category Date Time Status ABDOMEN AND PELVIS W CONTRAST [CT] Stat Exams 07/22/23 15:20 Completed Assessment/Plan (1) UTI (lower urinary tract infection) Current Visit: No Status: Acute Assessment & Plan: 1. Rocephin given in the ED 2. Follow urine Culture Code(s): N39.0 - URINARY TRACT INFECTION, SITE NOT SPECIFIED (2) Sudden onset of severe abdominal pain Current Visit: Yes Status: Acute Assessment & Plan: 1. CT abdomen with contrast shows no acute findings, with small kidney stones. Could be related to this. Or UTI. 2. IV Dilaudid 1 mg q3 PRN 3. NPO 4. IVF Code(s): R10.9 - UNSPECIFIED ABDOMINAL PAIN Telemedicine Encounter - Telemedicine Encounter Telemedicine Encounter: The entirety of this encounter was performed via Telemedicine"
[2023-07-22] MEDS: Hydromorphone 1 mg/ml Injection IV PRN (20:36)
[2023-07-23] MEDS: Hydromorphone 1 mg/ml Injection IV PRN ×5 (01:47→20:30)
--- NOTE | 2023-07-23 05:22 | PCM.NOTE ---
Date and Time: 07/23/23 0515 Subjective Assessment: Ms. Evans is a 28 year old femal with a PMHX of PCOS, DMII, anxiey, and depression who presented to ED 07/22/23 with complaints of right-sided severe sharp/throbbing abdominal pain with associated vomiting. CT abdomen/pelvis showing hepatomegaly, non-obstructing nephrolitiasis bilaterally, mulitlevel Schmorl?s nodes a tthe lower thoracic spine but otherwise unremarkable for any acute findings. WBC elevated at 19.5 on presentation. Urinalysis with pyuria and nitrates as well as yeast. Patient given a dose of Rocephin in ED. 07/23/23: Met with patient bedside. Endorsing severe diffuse abdominal pain R>L, nausea with no vomiting. US of abdomen ordered as well as repeat CT of A/P with surgery consulted. - Review of Systems Constitutional: No Symptoms Eyes: No Symptoms Ears, Nose, & Throat: No Symptoms Respiratory: No Symptoms Cardiac: No Symptoms Abdominal/Gastrointestinal: Abdominal Pain, Nausea Genitourinary Symptoms: Dysuria Musculoskeletal: No Symptoms Skin: No Symptoms Neurological: No Symptoms Psychological: Anxiety Endocrine: No Symptoms Objective Exam General Appearance: moderate distress Neurologic Exam: alert, oriented x 3, cooperative Skin Exam: pale Eye Exam: PERRL Ears, Nose, Throat Exam: normal ENT inspection Neck Exam: normal inspection Respiratory Exam: normal breath sounds, lungs clear Cardiovascular Exam: regular rate/rhythm, normal heart sounds Gastrointestinal/Abdomen Exam: tenderness, guarding, rebound Extremity Exam: normal inspection Back Exam: normal inspection Pelvic Exam: deferred OBJECTIVE DATA Vital Signs: Vital Signs - 24 hr Temp Pulse Resp BP BP Pulse Ox 07/23/23 04:00 98.2 F 84 16 95/54 94 L 07/23/23 00:00 97.9 F 106 H 20 111/59 99 07/22/23 20:41 97.3 F 100 H 20 106/57 99 07/22/23 20:04 97.3 F 100 H 20 106/57 99 07/22/23 19:45 99 07/22/23 19:00 110 H 26 H 96/56 95 07/22/23 18:30 117 H 32 H 108/57 95 07/22/23 18:13 111 H 28 H 104/67 96 07/22/23 18:12 111 H 20 96 07/22/23 18:10 102 H 24 98 07/22/23 18:09 114 H 25 H 99 07/22/23 17:30 121 H 30 H 96/55 07/22/23 17:00 118 H 28 H 102/56 07/22/23 16:30 120 H 24 103/50 96 07/22/23 16:25 117 H 29 H 114/50 07/22/23 16:00 111/77 98 07/22/23 15:32 114 H 17 109/73 100 07/22/23 14:53 99.3 F 104 H 18 120/78 99 Pain Assessment - Last Documented Pain Intensity 6 Pain Scale Used 0-10 Pain Scale Intake and Output: Intake & Output 07/20/23 07/21/23 07/22/23 07/23/23 11:59 11:59 11:59 11:59 Intake Total 652 Output Total 800 Balance -148 Weight 68.039 kg Lab Results: Lab Results-Last 24 Hours 07/22/23 07/22/23 07/22/23 Range/Units 15:30 15:30 15:30 WBC 19.5 H (4.0-10.5) x10^3/uL RBC 3.68 L (4.1-5.4) x10^6/uL Hgb 11.4 L (12.0-16.0) g/dL Hct 35.9 (35-47) % MCV 97.6 (78-100) fL MCH 31.0 (26-32) pg MCHC 31.8 L (32-36) g/dL RDW 12.6 (11.5-14.0) % Plt Count 436 (150-450) x10^3/uL MPV 8.6 (7.5-11.0) fL Gran % 90.0 H (36.0-66.0) % Immature Gran % (Auto) 0.9 H (0.00-0.4) % Nucleat RBC Rel Count 0.0 (0.00-0.1) % Eos # (Auto) 0.01 (0-0.5) x10^3/uL Immature Gran # (Auto) 0.18 H (0.00-0.03) x10^3u/L Absolute Lymphs (auto) 1.34 (1.0-4.6) x10^3/uL Absolute Monos (auto) 0.35 (0.0-1.3) x10^3/uL Absolute Nucleated RBC 0.00 (0.00-0.01) x10^3u/L Lymphocytes % 6.9 L (24.0-44.0) % Monocytes % 1.8 (0.0-12.0) % Eosinophils % 0.1 (0.00-5.0) % Basophils % 0.3 (0.0-0.4) % Absolute Granulocytes 17.52 H (1.4-6.9) x10^3/uL Basophils # 0.05 (0-0.4) x10^3/uL Sodium 134 L (137-145) mmol/L Potassium 3.6 (3.5-5.1) mmol/L Chloride 101 (98-107) mmol/L Carbon Dioxide 22 (22-30) mmol/L Anion Gap 14.9 (5-15) MEQ/L BUN 14 (7-17) mg/dL Creatinine 0.39 L (0.52-1.04) mg/dL Estimated GFR 138.2 ML/MIN Glucose 125 H (74-106) mg/dL Calcium 9.3 (8.4-10.2) mg/dL Total Bilirubin 0.80 (0.2-1.3) mg/dL AST 20 (14-36) U/L ALT 22 (0-35) U/L Alkaline Phosphatase 39 (38-126) U/L Serum Total Protein 7.6 (6.3-8.2) g/dL Albumin 4.2 (3.5-5.0) g/dL Lipase 21 L (23-300) U/L Procalcitonin (0.030-0.080) ng/mL Serum HCG, Qual NEGATIVE (NEGATIVE) Urine Color (Yellow) Urine Appearance (Clear) Urine pH (4.6-8.0) Ur Specific [place] (1.005-1.030) Urine Protein (Negative) Urine Glucose (UA) (Negative) mg/dL Urine Ketones (Negative) Urine Blood (Negative) Urine Nitrite (Negative) Urine Bilirubin (Negative) Urine Urobilinogen (0.2) mg/dL Ur Leukocyte Esterase (Negative) U Hyaline Cast (Auto) (0-2) /LPF Urine Microscopic RBC (0-5) /HPF Urine Microscopic WBC (0-5) /HPF Ur Epithelial Cells (None Seen) /HPF Urine Bacteria (None Seen) /HPF Urine Yeast (Budding) (None Seen) /HPF Urine Culture Reflexed (NO) Urine Opiates Level (NEGATIVE) Ur Methadone (NEGATIVE) Urine Barbiturates (NEGATIVE) Ur Phencyclidine (PCP) (NEGATIVE) Urine Amphetamine (NEGATIVE) U Benzodiazepine Level (NEGATIVE) Urine Cocaine (NEGATIVE) Urine Marijuana (THC) (NEGATIVE) 07/22/23 07/22/23 07/22/23 Range/Units 15:30 18:01 18:03 WBC (4.0-10.5) x10^3/uL RBC (4.1-5.4) x10^6/uL Hgb (12.0-16.0) g/dL Hct (35-47) % MCV (78-100) fL MCH (26-32) pg MCHC (32-36) g/dL RDW (11.5-14.0) % Plt Count (150-450) x10^3/uL MPV (7.5-11.0) fL Gran % (36.0-66.0) % Immature Gran % (Auto) (0.00-0.4) % Nucleat RBC Rel Count (0.00-0.1) % Eos # (Auto) (0-0.5) x10^3/uL Immature Gran # (Auto) (0.00-0.03) x10^3u/L Absolute Lymphs (auto) (1.0-4.6) x10^3/uL Absolute Monos (auto) (0.0-1.3) x10^3/uL Absolute Nucleated RBC (0.00-0.01) x10^3u/L Lymphocytes % (24.0-44.0) % Monocytes % (0.0-12.0) % Eosinophils % (0.00-5.0) % Basophils % (0.0-0.4) % Absolute Granulocytes (1.4-6.9) x10^3/uL Basophils # (0-0.4) x10^3/uL Sodium (137-145) mmol/L Potassium (3.5-5.1) mmol/L Chloride (98-107) mmol/L Carbon Dioxide (22-30) mmol/L Anion Gap (5-15) MEQ/L BUN (7-17) mg/dL Creatinine (0.52-1.04) mg/dL Estimated GFR ML/MIN Glucose (74-106) mg/dL Calcium (8.4-10.2) mg/dL Total Bilirubin (0.2-1.3) mg/dL AST (14-36) U/L ALT (0-35) U/L Alkaline Phosphatase (38-126) U/L Serum Total Protein (6.3-8.2) g/dL Albumin (3.5-5.0) g/dL Lipase (23-300) U/L Procalcitonin 0.548 H (0.030-0.080) ng/mL Serum HCG, Qual (NEGATIVE) Urine Color Yellow (Yellow) Urine Appearance Clear (Clear) Urine pH 7.5 (4.6-8.0) Ur Specific [place] >=1.030 A (1.005-1.030) Urine Protein Negative (Negative) Urine Glucose (UA) Negative (Negative) mg/dL Urine Ketones Negative (Negative) Urine Blood Trace (Negative) Urine Nitrite Positive A (Negative) Urine Bilirubin Negative (Negative) Urine Urobilinogen 0.2 (0.2) mg/dL Ur Leukocyte Esterase Small A (Negative) U Hyaline Cast (Auto) NONE SEEN (0-2) /LPF Urine Microscopic RBC 3-5 (0-5) /HPF Urine Microscopic WBC 21-50 A (0-5) /HPF Ur Epithelial Cells Rare (None Seen) /HPF Urine Bacteria Many A (None Seen) /HPF Urine Yeast (Budding) Few A (None Seen) /HPF Urine Culture Reflexed YES (NO) Urine Opiates Level POSITIVE A (NEGATIVE) Ur Methadone NEGATIVE (NEGATIVE) Urine Barbiturates NEGATIVE (NEGATIVE) Ur Phencyclidine (PCP) NEGATIVE (NEGATIVE) Urine Amphetamine NEGATIVE (NEGATIVE) U Benzodiazepine Level NEGATIVE (NEGATIVE) Urine Cocaine NEGATIVE (NEGATIVE) Urine Marijuana (THC) NEGATIVE (NEGATIVE) Radiology Exams: Radiology Procedures Category Date Time Status ABDOMEN AND PELVIS W CONTRAST [CT] Stat Exams 07/22/23 15:20 Completed Assessment/Plan (1) UTI (lower urinary tract infection) Current Visit: No Status: Acute Assessment & Plan: Rocephin given in the ED, will continue, follow culture 07/23: -Continue rocephin, follow culture, showing gram negative currently Code(s): N39.0 - URINARY TRACT INFECTION, SITE NOT SPECIFIED (2) Sudden onset of severe abdominal pain Current Visit: Yes Status: Acute Assessment & Plan: 1. CT abdomen with contrast shows no acute findings, with small kidney stones. Could be related to this. Or UTI. 2. IV Dilaudid 1 mg q3 PRN 3. NPO 4. IVF 07/23: -Keep pt NPO with IVG -IV dilaudid increased to 2mg -Repeat CT ab/pelvis -US abdomen -Surgery consulted, appreciate recs Code(s): R10.9 - UNSPECIFIED ABDOMINAL PAIN (3) Leukocytosis Current Visit: Yes Status: Acute Assessment & Plan: -Most likely secondary to UTI - CT abdomen with contrast shows no acute findings, with small kidney stones. Could be related to this. Or UTI. -Continue Rocephin , will monitor response/follow cultures -Procal elevated 07/23: -improving with abx, now at 12.2 Code(s): D72.829 - ELEVATED WHITE BLOOD CELL COUNT, UNSPECIFIED (4) Diabetes Current Visit: Yes Status: Acute Assessment & Plan: -ADA diet -SSI -Accuchecks Code(s): E11.9 - TYPE 2 DIABETES MELLITUS WITHOUT COMPLICATIONS (5) Anxiety Current Visit: Yes Status: Acute Assessment & Plan: noted-No reportable home medications Code(s): F41.9 - ANXIETY DISORDER, UNSPECIFIED (6) Depression Current Visit: Yes Status: Acute Assessment & Plan: -noted, no reportable home medications Code(s): F32.A - DEPRESSION, UNSPECIFIED (7) Renal calculus, left Current Visit: No Status: Acute Assessment & Plan: -noted on CT, non obstructing Code(s): N20.0 - CALCULUS OF KIDNEY
[2023-07-23 06:55] LABS: Absolute Neutrophil Ct (ANC) 9.42 x10^3/uL (1.4-6.9); BASOPHIL % 0.4 % (0.0-0.4); Basophil (Absolute #) 0.05 x10^3/uL (0-0.4); Eosinophil % 0.5 % (0.00-5.0); Eosinophil (Absolute #) 0.06 x10^3/uL (0-0.5); Hemoglobin 9.2 g/dL (12.0-16.0); IMMATURE GRAN # 0.07 x10^3u/L (0.00-0.03); IMMATURE GRAN % 0.6 % (0.00-0.4); Mean Cell Volume 98.6 fL (78-100); Mean Corpuscular Hemoglobin 31.3 pg (26-32); Mean Corpuscular Hgb Concent. 31.7 g/dL (32-36); Mean Platelet Volume 9.1 fL (7.5-11.0); Monocyte (Absolute #) 0.42 x10^3/uL (0.0-1.3); Monocytes % 3.4 % (0.0-12.0); Neutrophil % 77.1 % (36.0-66.0); Platelet Count 365 x10^3/uL (150-450); Red Blood Count 2.94 x10^6/uL (4.1-5.4); Red Cell Distribution Width 12.8 % (11.5-14.0); White Blood Count 12.2 x10^3/uL (4.0-10.5)
[2023-07-23 06:59] LABS: ALBUMIN 3.3 g/dL (3.5-5.0); ANION GAP 9.4 MEQ/L (5-15); BILIRUBIN,TOTAL 0.3 mg/dL (0.2-1.3); Calcium 8.5 mg/dL (8.4-10.2); Creatinine 1 0.42 mg/dL (0.52-1.04); EST GLOMERULAR FILTRATION RATE 135.7 ML/MIN; Potassium 3.6 mmol/L (3.5-5.1); Total Protein 6.3 g/dL (6.3-8.2)
[2023-07-23] MEDS ORDERED: NORCO 5/325 MG PO PRN (09:10)
[2023-07-23] MEDS: Protonix 40MG Tablet PO SCH ×2 (11:33→21:33)
--- NOTE | 2023-07-23 15:32 | XRAY ---
Indication: Abdominal pain. Two-dimensional abdominal sonogram performed. Comparison: None Visualized liver, pancreas, and spleen are homogeneous in echogenicity. Liver is enlarged measuring 20.7 cm. No free fluid. Gallbladder normally distended without gallstones, wall thickening, or pericholecystic fluid. Common bile duct measures 2 mm. No intrahepatic biliary distention. Visualized aorta and IVC are normal in course and caliber. Right kidney measures 12.8 x 4.4 x 5.4 cm and left measures 11.9 x 5.5 x 5.5 cm. No focal solid/cystic renal mass or hydronephrosis. Cortical medullary differentiation preserved. Impression: Hepatomegaly. Remaining abdominal sonogram is negative.
[2023-07-23] MEDS: ROCEPHIN 1 Gm-D5w 50 ml Bag** 1 G/50 ML IVPB IV SCH (21:33)
[2023-07-24] MEDS: Hydromorphone 1 mg/ml Injection IV PRN ×4 (01:39→22:27)
[2023-07-24 05:09] LABS: Absolute Neutrophil Ct (ANC) 4.82 x10^3/uL (1.4-6.9); BASOPHIL % 0.3 % (0.0-0.4); Basophil (Absolute #) 0.02 x10^3/uL (0-0.4); Eosinophil % 0.9 % (0.00-5.0); Eosinophil (Absolute #) 0.06 x10^3/uL (0-0.5); Hematocrit 28.1 % (35-47); Hemoglobin 9.1 g/dL (12.0-16.0); IMMATURE GRAN # 0.02 x10^3u/L (0.00-0.03); IMMATURE GRAN % 0.3 % (0.00-0.4); Lymphocyte (Absolute #) 1.53 x10^3/uL (1.0-4.6); Lymphocytes % 22.3 % (24.0-44.0); Mean Cell Volume 97.6 fL (78-100); Mean Corpuscular Hemoglobin 31.6 pg (26-32); Mean Corpuscular Hgb Concent. 32.4 g/dL (32-36); Monocyte (Absolute #) 0.42 x10^3/uL (0.0-1.3); Monocytes % 6.1 % (0.0-12.0); Neutrophil % 70.1 % (36.0-66.0); Platelet Count 345 x10^3/uL (150-450); Red Blood Count 2.88 x10^6/uL (4.1-5.4); Red Cell Distribution Width 12.6 % (11.5-14.0); White Blood Count 6.9 x10^3/uL (4.0-10.5)
--- NOTE | 2023-07-24 05:20 | PCM.NOTE ---
Date and Time: 07/24/23517 Subjective Assessment: Ms. Evans is a 28 year old femal with a PMHX of PCOS, DMII, anxiey, and depression who presented to ED 07/22/23 with complaints of right-sided severe sharp/throbbing abdominal pain with associated vomiting. CT abdomen/pelvis showing hepatomegaly, non-obstructing nephrolitiasis bilaterally, mulitlevel Schmorl?s nodes a tthe lower thoracic spine but otherwise unremarkable for any acute findings. WBC elevated at 19.5 on presentation. Urinalysis with pyuria and nitrates as well as yeast. Patient given a dose of Rocephin in ED. Abdominal US showing hepatomegaly otherwise unremarkable. Repeat CT pending. 07/23/23: Met with patient bedside. Endorsing severe diffuse abdominal pain R>L, nausea with no vomiting. US of abdomen ordered as well as repeat CT of A/P with surgery consulted. 07/24/23: Patient examined bedside. No overnight events noted. Endorses continued abdominal pain 5-7/10 on numerical pain scale. Surgery consulted - Review of Systems Constitutional: No Symptoms Eyes: No Symptoms Ears, Nose, & Throat: No Symptoms Respiratory: No Symptoms Cardiac: No Symptoms Abdominal/Gastrointestinal: Abdominal Pain, Nausea Genitourinary Symptoms: No Symptoms Musculoskeletal: No Symptoms Skin: No Symptoms Neurological: No Symptoms Psychological: No Symptoms Endocrine: No Symptoms Hematologic/Lymphatic: No Symptoms Objective Exam General Appearance: no apparent distress Neurologic Exam: alert, oriented x 3, cooperative Skin Exam: normal color Eye Exam: PERRL Ears, Nose, Throat Exam: moist mucous membranes Neck Exam: normal inspection Respiratory Exam: normal breath sounds, lungs clear Cardiovascular Exam: regular rate/rhythm, normal heart sounds Gastrointestinal/Abdomen Exam: soft, normal bowel sounds, tenderness Extremity Exam: normal inspection Back Exam: normal inspection OBJECTIVE DATA Vital Signs: Vital Signs - 24 hr Temp Pulse Resp BP Pulse Ox 07/24/23 04:00 97.5 F 80 16 108/66 96 07/23/23 23:43 97.3 F 86 16 113/62 97 07/23/23 19:47 97.7 F 80 16 134/66 99 07/23/23 16:00 97.8 F 87 18 95/53 95 07/23/23 11:57 97.4 F 79 18 122/74 99 07/23/23 07:09 98.4 F 81 18 84/52 99 Pain Assessment - Last Documented Pain Intensity 5 Pain Scale Used 0-10 Pain Scale Intake and Output: Intake & Output 07/21/23 07/22/23 07/23/23 07/24/23 11:59 11:59 11:59 11:59 Intake Total 892 2322 Output Total 1500 1250 Balance -608 1072 Weight 68.039 kg Lab Results: Lab Results-Last 24 Hours 07/23/23 07/23/23 07/23/23 Range/Units 06:04 06:21 06:21 WBC 12.2 H (4.0-10.5) x10^3/uL RBC 2.94 L (4.1-5.4) x10^6/uL Hgb 9.2 L (12.0-16.0) g/dL Hct 29.0 L (35-47) % MCV 98.6 (78-100) fL MCH 31.3 (26-32) pg MCHC 31.7 L (32-36) g/dL RDW 12.8 (11.5-14.0) % Plt Count 365 (150-450) x10^3/uL MPV 9.1 (7.5-11.0) fL Gran % 77.1 H (36.0-66.0) % Immature Gran % (Auto) 0.6 H (0.00-0.4) % Nucleat RBC Rel Count 0.0 (0.00-0.1) % Eos # (Auto) 0.06 (0-0.5) x10^3/uL Immature Gran # (Auto) 0.07 H (0.00-0.03) x10^3u/L Absolute Lymphs (auto) 2.20 (1.0-4.6) x10^3/uL Absolute Monos (auto) 0.42 (0.0-1.3) x10^3/uL Absolute Nucleated RBC 0.00 (0.00-0.01) x10^3u/L Lymphocytes % 18.0 L (24.0-44.0) % Monocytes % 3.4 (0.0-12.0) % Eosinophils % 0.5 (0.00-5.0) % Basophils % 0.4 (0.0-0.4) % Absolute Granulocytes 9.42 H (1.4-6.9) x10^3/uL Basophils # 0.05 (0-0.4) x10^3/uL Sodium 135 L (137-145) mmol/L Potassium 3.6 (3.5-5.1) mmol/L Chloride 104 (98-107) mmol/L Carbon Dioxide 25 (22-30) mmol/L Anion Gap 9.4 (5-15) MEQ/L BUN 9 (7-17) mg/dL Creatinine 0.42 L (0.52-1.04) mg/dL Estimated GFR 135.7 ML/MIN Glucose 92 (74-106) mg/dL Lactic Acid 1.0 (0.4-2.0) Calcium 8.5 (8.4-10.2) mg/dL Total Bilirubin 0.30 (0.2-1.3) mg/dL AST 14 (14-36) U/L ALT 14 (0-35) U/L Alkaline Phosphatase 34 L (38-126) U/L Serum Total Protein 6.3 (6.3-8.2) g/dL Albumin 3.3 L (3.5-5.0) g/dL Radiology Exams: Radiology Procedures Category Date Time Status ABDOMEN AND PELVIS W CONTRAST [CT] Stat Exams 07/22/23 15:20 Completed ABDOMEN AND PELVIS W CONTRAST [CT] Stat Exams 07/23/23 15:39 Taken UPPER ABDOMEN [US] Stat Exams 07/23/23 11:16 Completed Assessment/Plan (1) UTI (lower urinary tract infection) Current Visit: No Status: Acute Assessment & Plan: Rocephin given in the ED, will continue, follow culture 07/23: -Continue rocephin, follow culture, showing gram negative currently 07/24: -Ucult growing Ecoli, sensitive to ceftriaxone, will continue Code(s): N39.0 - URINARY TRACT INFECTION, SITE NOT SPECIFIED (2) Sudden onset of severe abdominal pain Current Visit: Yes Status: Acute Assessment & Plan: 1. CT abdomen with contrast shows no acute findings, with small kidney stones. Could be related to this. Or UTI. 2. IV Dilaudid 1 mg q3 PRN 3. NPO 4. IVF 07/23: -Keep pt NPO with IVG -IV dilaudid increased to 2mg -Repeat CT ab/pelvis -US abdomen -Surgery consulted, appreciate recs 07/24: -US of abdomen with hepatomegaly otherwise unremarkable/ CT ab/pelvis pending -Transvaginal US demonstrating PCOS otherwise unremarkable -PPI started -CT pending read Code(s): R10.9 - UNSPECIFIED ABDOMINAL PAIN (3) Leukocytosis Current Visit: Yes Status: Acute Assessment & Plan: -Most likely secondary to UTI - CT abdomen with contrast shows no acute findings, with small kidney stones. Could be related to this. Or UTI. -Continue Rocephin , will monitor response/follow cultures -Procal elevated 07/23: -improving with abx, now at 12.2 07/24: -WBC now wnl Code(s): D72.829 - ELEVATED WHITE BLOOD CELL COUNT, UNSPECIFIED (4) Diabetes Current Visit: Yes Status: Acute Assessment & Plan: -ADA diet -SSI -Accuchecks Code(s): E11.9 - TYPE 2 DIABETES MELLITUS WITHOUT COMPLICATIONS (5) Anxiety Current Visit: Yes Status: Acute Assessment & Plan: noted-No reportable home medications Code(s): F41.9 - ANXIETY DISORDER, UNSPECIFIED (6) Depression Current Visit: Yes Status: Acute Assessment & Plan: -noted, no reportable home medications Code(s): F32.A - DEPRESSION, UNSPECIFIED (7) Renal calculus, left Current Visit: No Status: Acute Assessment & Plan: -noted on CT, non obstructing Code(s): N20.0 - CALCULUS OF KIDNEY # hypokalemia 07/24: -Potassium low at 3.1, will replenish per protocol Code(s): N39.0 - URINARY TRACT INFECTION, SITE NOT SPECIFIED (2) Sudden onset of severe abdominal pain Current Visit: Yes Status: Acute Code(s): R10.9 - UNSPECIFIED ABDOMINAL PAIN (3) Leukocytosis Current Visit: Yes Status: Acute Code(s): D72.829 - ELEVATED WHITE BLOOD CELL COUNT, UNSPECIFIED (4) Diabetes Current Visit: Yes Status: Acute Code(s): E11.9 - TYPE 2 DIABETES MELLITUS WITHOUT COMPLICATIONS (5) Anxiety Current Visit: Yes Status: Acute Code(s): F41.9 - ANXIETY DISORDER, UNSPECIFIED (6) Depression Current Visit: Yes Status: Acute Code(s): F32.A - DEPRESSION, UNSPECIFIED (7) Renal calculus, left Current Visit: No Status: Acute Code(s): N20.0 - CALCULUS OF KIDNEY (8) Hypokalemia Current Visit: Yes Status: Acute Code(s): E87.6 - HYPOKALEMIA
[2023-07-24 05:39] LABS: ALBUMIN 3.4 g/dL (3.5-5.0); ANION GAP 10.3 MEQ/L (5-15); BILIRUBIN,TOTAL 0.3 mg/dL (0.2-1.3); Calcium 8.7 mg/dL (8.4-10.2); Creatinine 1 0.43 mg/dL (0.52-1.04); EST GLOMERULAR FILTRATION RATE 134.9 ML/MIN; Potassium 3.1 mmol/L (3.5-5.1); Total Protein 6.6 g/dL (6.3-8.2)
[2023-07-24] MEDS: Klor Con PO SCH ×4 (09:11→15:29)
[2023-07-24] MEDS: Protonix 40MG Tablet PO SCH ×2 (09:11→22:28)
--- NOTE | 2023-07-24 09:25 | XRAY ---
Indication: Abdomen/pelvic pain. History of polycystic ovary syndrome. Two-dimensional transvaginal pelvic sonogram performed. Comparison: November 01, 2012 Uterus again anteverted measuring 8.0 x 4.5 x 5.8 cm. The lower uterine segment demonstrates a few tiny nabothian cysts, largest 4 mm. Endometrial stripe measures 3.4 mm. No endometrial cavity mass or fluid collection. Right ovary measures 4.1 x 3.4 x 3.2 cm and left measures 3.3 x 2.6 x 3.5 cm with normal perfusion. Both ovaries demonstrates multiple tiny peripheral follicular cysts consistent with clinically reported polycystic ovary syndrome. No suspicious adnexal mass or free fluid. Impression: Sonographic features favoring polycystic ovary syndrome. Incidental tiny nabothian cysts. Remaining transvaginal pelvic sonogram is negative.
--- NOTE | 2023-07-24 10:03 | CONS ---
CONSULT DATE: 07/23/2023 HISTORY: This is a patient who presented to the emergency room due to what she states was a severe upper abdominal pain starting yesterday that she has never had before. She said she also vomited two times yesterday and she also had a little bit of diarrhea. She is not vomiting today. She is not currently nauseous but she continues to have pain. She did have a CT scan in the emergency room as well as labs, was admitted, placed on IV fluids and also placed on IV antibiotics for urinary tract infection and then due to her continued pain she also had another CT scan ordered by her medical doctor and is pending for this afternoon and surgery was consulted. On further discussion with the patient, she has no sick contacts. She has not had any pain before like this and she does not normally hurt after eating. PAST MEDICAL HISTORY: Kidney stones. PAST SURGICAL HISTORY: None. MEDICATIONS: No home medications. ALLERGIES: COMPAZINE. SOCIAL HISTORY: Positive tobacco use. No alcohol use. FAMILY HISTORY: The patient denies any GI, anesthetic, bleeding, malignant or other family history. LAB DATA, TESTS & IMAGING: The patient was found to have an elevated white count of approximately 19 which has gone to around 11 to 12 today. She also had a mild anemia around 11 which is about 9 today with fluid. Her creatinine is low at 0.42. She also had liver function tests and bilirubin tested within normal as well as lipase which was normal. Imaging: CT scan - The patient does not have any acute abdominal findings on the CT scan. She does have a history of kidney stones. However, there does not appear to be any obstructive stones right now per her medical report as well. PHYSICAL EXAMINATION: GENERAL: No acute distress. CVS: Regular rate and rhythm. PULMONARY: Nonlabored respirations. ABDOMEN: Soft, nondistended, tender to palpation. Upper abdomen including right upper abdomen, epigastric and less tender in the left upper quadrant. Nontender in the lower abdomen. No rebound. No guarding. ASSESSMENT: This is a patient who presented with abdominal pain. Her CT scan overall was generally negative including her GI tract. She also had a distended gallbladder but stones were not readily visible and since the top two items on the differential based on her labs, CT scan and clinical exam are cholecystitis, peptic ulcer disease, gastritis or other upper GI etiology. I will plan to order a right upper quadrant ultrasound. Her biliary labs are normal. She could have pancreatitis although this does not appear to be as likely with a normal pancreas and normal pancreatic labs. She could also have gastritis and she may need an upper scope. However, I will await the findings of the right upper quadrant ultrasound first and prophylactically we will start her a proton pump inhibitor twice daily, continue her fluids, keep her on bowel rest and then I will await the final imaging results. The abdomen is benign. She is more tender in her upper abdomen. Please see my full exam report. Thank you for the consultation. I will continue to follow the patient with you.
--- NOTE | 2023-07-24 15:19 | XRAY ---
Indication: Abdominal pain. Multiple contiguous axial images obtained through the abdomen and pelvis using 80 cc Isovue 370 contrast. Comparison: One day earlier. Lung bases remain clear. Heart not enlarged. Noncontrasted stomach and bowel loops nonobstructed. Appendix again not seen. Liver remains enlarged measuring 21.4 cm. Stable nonobstructing left renal punctate stone. No free fluid/air. Remaining liver, gallbladder, pancreas, spleen, adrenal glands, kidneys, ureters, bladder, uterus, and aorta are unremarkable. No pathologic retroperitoneal lymphadenopathy. Impression: No change compared to CT abdomen/pelvis with contrast exam one day earlier. Again nonobstructing left renal punctate stone and incidental hepatomegaly. No new/acute findings.
[2023-07-24] MEDS: ROCEPHIN 1 Gm-D5w 50 ml Bag** 1 G/50 ML IVPB IV SCH (22:32)
[2023-07-25] MEDS: Hydromorphone 1 mg/ml Injection IV PRN ×2 (02:36→07:59)
[2023-07-25 05:07] LABS: Absolute Neutrophil Ct (ANC) 2.14 x10^3/uL (1.4-6.9); BASOPHIL % 0.7 % (0.0-0.4); Basophil (Absolute #) 0.03 x10^3/uL (0-0.4); Eosinophil % 2.4 % (0.00-5.0); Hematocrit 30.1 % (35-47); Hemoglobin 9.6 g/dL (12.0-16.0); IMMATURE GRAN # 0.01 x10^3u/L (0.00-0.03); IMMATURE GRAN % 0.2 % (0.00-0.4); Lymphocyte (Absolute #) 1.72 x10^3/uL (1.0-4.6); Lymphocytes % 40.6 % (24.0-44.0); Mean Cell Volume 96.5 fL (78-100); Mean Corpuscular Hemoglobin 30.8 pg (26-32); Mean Corpuscular Hgb Concent. 31.9 g/dL (32-36); Mean Platelet Volume 9.1 fL (7.5-11.0); Monocyte (Absolute #) 0.24 x10^3/uL (0.0-1.3); Monocytes % 5.7 % (0.0-12.0); Neutrophil % 50.4 % (36.0-66.0); Platelet Count 398 x10^3/uL (150-450); Red Blood Count 3.12 x10^6/uL (4.1-5.4); Red Cell Distribution Width 12.4 % (11.5-14.0); White Blood Count 4.2 x10^3/uL (4.0-10.5)
--- NOTE | 2023-07-25 05:14 | PCM.DS ---
Discharge Summary Date of Admission: 07/22/23 19:58 Date of Discharge: 07/25/23 Admitting Physician: ILIANA FINN MD Consults: Consults on Case 07/23/23 10:19 Consult Surgery ROUTINE Primary Care Provider: NO FAMILY DOCTOR Allergies Allergies prochlorperazine [From Compazine] Allergy (Verified 07/22/23 20:18) Hospital Summary - Hospital Course Hospital Course: Ms. Evans is a 28 year old femal with a PMHX of PCOS, DMII, anxiey, and depression who presented to ED 07/22/23 with complaints of right-sided severe sharp/throbbing abdominal pain with associated vomiting. CT abdomen/pelvis showing hepatomegaly, non-obstructing nephrolitiasis bilaterally, mulitlevel Schmorls nodes a the lower thoracic spine but otherwise unremarkable for any acute findings. WBC elevated at 19.5 on presentation. Urinalysis with ecoli and patient treated with rocephin during admission.Abdominal US showing hepatomegaly otherwise unremarkable. Repeat CT with no new findings. Transvaginal US showing known PCOS. Incidental tiny nabothian cysts. Surgery consulted, patient now tolerating diet, PPI started. Patient continues to have pain in RLQ. Advised follow up with surgery and GI. She may need an EGD as OP, more likely that this pain is related to her PCOS/UTI. She will discharge on cefdinir for 5 more days. Advised f/u with PCP for urine recheck. Discharge Note New Diagnosis: UTI New Medications: Cefdinir Follow Up: PCP/TEST ANALYST/ surgery Latest Assessment & Plan Rocephin given in the ED, will continue, follow culture 07/23: -Continue rocephin, follow culture, showing gram negative currently 07/24: -Ucult growing Ecoli, sensitive to ceftriaxone, will continue Code(s): N39.0 - URINARY TRACT INFECTION, SITE NOT SPECIFIED (2) Sudden onset of severe abdominal pain Current Visit: Yes Status: Acute Assessment & Plan: 1. CT abdomen with contrast shows no acute findings, with small kidney stones. Could be related to this. Or UTI. 2. IV Dilaudid 1 mg q3 PRN 3. NPO 4. IVF 07/23: -Keep pt NPO with IVG -IV dilaudid increased to 2mg -Repeat CT ab/pelvis -US abdomen -Surgery consulted, appreciate recs 07/24: -US of abdomen with hepatomegaly otherwise unremarkable/ CT ab/pelvis pending -Transvaginal US demonstrating PCOS otherwise unremarkable -PPI started -CT pending read Code(s): R10.9 - UNSPECIFIED ABDOMINAL PAIN (3) Leukocytosis Current Visit: Yes Status: Acute Assessment & Plan: -Most likely secondary to UTI - CT abdomen with contrast shows no acute findings, with small kidney stones. Could be related to this. Or UTI. -Continue Rocephin , will monitor response/follow cultures -Procal elevated 07/23: -improving with abx, now at 12.2 07/24: -WBC now wnl Code(s): D72.829 - ELEVATED WHITE BLOOD CELL COUNT, UNSPECIFIED (4) Diabetes Current Visit: Yes Status: Acute Assessment & Plan: -ADA diet -SSI -Accuchecks Code(s): E11.9 - TYPE 2 DIABETES MELLITUS WITHOUT COMPLICATIONS (5) Anxiety Current Visit: Yes Status: Acute Assessment & Plan: noted-No reportable home medications Code(s): F41.9 - ANXIETY DISORDER, UNSPECIFIED (6) Depression Current Visit: Yes Status: Acute Assessment & Plan: -noted, no reportable home medications Code(s): F32.A - DEPRESSION, UNSPECIFIED (7) Renal calculus, left Current Visit: No Status: Acute Assessment & Plan: -noted on CT, non obstructing Code(s): N20.0 - CALCULUS OF KIDNEY # hypokalemia 07/24: -Potassium low at 3.1, will replenish per protocol I spent 35 minutes [id number] with the patient on the day of discharge performing discharge exam, discussing hospital stay and discharge instructions with patient and caregivers, preparation of discharge records, prescriptions & referral forms and addressing any questions/concerns the patient had as documented above. - Vitals & Intake/Output Vital Signs: Vital Signs Temperature 98.0 F 07/25/23 03:51 Pulse Rate 78 07/25/23 03:51 Respiratory Rate 18 07/25/23 03:51 Blood Pressure 164/72 07/25/23 03:51 O2 Sat by Pulse Oximetry 99 07/25/23 03:51 Intake & Output: Intake & Output 07/22/23 07/23/23 07/24/23 07/25/23 11:59 11:59 11:59 11:59 Intake Total 895 3409 3642 Output Total 1500 1250 1200 Balance -608 1312 2443 Weight 68.039 kg - Lab Result Diagrams: 07/25/23 04:59 07/25/23 04:59 Lab Results-Last 24 Hrs: Lab Results-Last 24 Hours 07/24/23 07/24/23 07/24/23 Range/Units 04:41 04:41 05:04 WBC 6.9 (4.0-10.5) x10^3/uL RBC 2.88 L (4.1-5.4) x10^6/uL Hgb 9.1 L (12.0-16.0) g/dL Hct 28.1 L (35-47) % MCV 97.6 (78-100) fL MCH 31.6 (26-32) pg MCHC 32.4 (32-36) g/dL RDW 12.6 (11.5-14.0) % Plt Count 345 (150-450) x10^3/uL MPV 9.0 (7.5-11.0) fL Gran % 70.1 H (36.0-66.0) % Immature Gran % (Auto) 0.3 (0.00-0.4) % Nucleat RBC Rel Count 0.0 (0.00-0.1) % Eos # (Auto) 0.06 (0-0.5) x10^3/uL Immature Gran # (Auto) 0.02 (0.00-0.03) x10^3u/L Absolute Lymphs (auto) 1.53 (1.0-4.6) x10^3/uL Absolute Monos (auto) 0.42 (0.0-1.3) x10^3/uL Absolute Nucleated RBC 0.00 (0.00-0.01) x10^3u/L Lymphocytes % 22.3 L (24.0-44.0) % Monocytes % 6.1 (0.0-12.0) % Eosinophils % 0.9 (0.00-5.0) % Basophils % 0.3 (0.0-0.4) % Absolute Granulocytes 4.82 (1.4-6.9) x10^3/uL Basophils # 0.02 (0-0.4) x10^3/uL Sodium 133 L (137-145) mmol/L Potassium 3.1 L (3.5-5.1) mmol/L Chloride 102 (98-107) mmol/L Carbon Dioxide 24 (22-30) mmol/L Anion Gap 10.3 (5-15) MEQ/L BUN 8 (7-17) mg/dL Creatinine 0.43 L (0.52-1.04) mg/dL Estimated GFR 134.9 ML/MIN Glucose 87 (74-106) mg/dL Calcium 8.7 (8.4-10.2) mg/dL Magnesium 2.1 (1.6-2.3) mg/dL Total Bilirubin 0.30 (0.2-1.3) mg/dL AST 13 L (14-36) U/L ALT 13 (0-35) U/L Alkaline Phosphatase 35 L (38-126) U/L Serum Total Protein 6.6 (6.3-8.2) g/dL Albumin 3.4 L (3.5-5.0) g/dL 07/24/23 07/24/23 Range/Units 10:55 14:09 WBC (4.0-10.5) x10^3/uL RBC (4.1-5.4) x10^6/uL Hgb (12.0-16.0) g/dL Hct (35-47) % MCV (78-100) fL MCH (26-32) pg MCHC (32-36) g/dL RDW (11.5-14.0) % Plt Count (150-450) x10^3/uL MPV (7.5-11.0) fL Gran % (36.0-66.0) % Immature Gran % (Auto) (0.00-0.4) % Nucleat RBC Rel Count (0.00-0.1) % Eos # (Auto) (0-0.5) x10^3/uL Immature Gran # (Auto) (0.00-0.03) x10^3u/L Absolute Lymphs (auto) (1.0-4.6) x10^3/uL Absolute Monos (auto) (0.0-1.3) x10^3/uL Absolute Nucleated RBC (0.00-0.01) x10^3u/L Lymphocytes % (24.0-44.0) % Monocytes % (0.0-12.0) % Eosinophils % (0.00-5.0) % Basophils % (0.0-0.4) % Absolute Granulocytes (1.4-6.9) x10^3/uL Basophils # (0-0.4) x10^3/uL Sodium (137-145) mmol/L Potassium 3.6 3.6 (3.5-5.1) mmol/L Chloride (98-107) mmol/L Carbon Dioxide (22-30) mmol/L Anion Gap (5-15) MEQ/L BUN (7-17) mg/dL Creatinine (0.52-1.04) mg/dL Estimated GFR ML/MIN Glucose (74-106) mg/dL Calcium (8.4-10.2) mg/dL Magnesium (1.6-2.3) mg/dL Total Bilirubin (0.2-1.3) mg/dL AST (14-36) U/L ALT (0-35) U/L Alkaline Phosphatase (38-126) U/L Serum Total Protein (6.3-8.2) g/dL Albumin (3.5-5.0) g/dL Micro Results-Entire Visit: Microbiology 07/22/23 18:01 Urine Culture - Final Clean Catch Midstream Escherichia Coli - Radiology Exams Ordered Rad Exams-Entire Visit: Radiology Procedures Category Date Time Status ABDOMEN AND PELVIS W CONTRAST [CT] Stat Exams 07/23/23 15:39 Completed PELVIS TRANS VAGINAL [US] Urgent Exams 07/24/23 06:29 Completed UPPER ABDOMEN [US] Stat Exams 07/23/23 11:16 Completed - Procedures and Test Procedures and Tests throughout Hospitalization: Therapy Orders & Screens 07/22/23 20:53 Smoking Cessation Education ONCE Comment: Diagnosis: Acute UTI, severe abdominal pain Smoking Status: Current every day smoker How long have you smoked: 10 years Do you dip or chew tobacco: No Discharge Exam General Appearance: no apparent distress Neurologic Exam: alert, oriented x 3, cooperative Eye Exam: PERRL Ears, Nose, Throat Exam: normal ENT inspection Neck Exam: normal inspection Respiratory Exam: normal breath sounds, lungs clear Cardiovascular Exam: regular rate/rhythm, normal heart sounds Gastrointestinal/Abdomen Exam: soft, normal bowel sounds, tenderness (RLQ) Pelvic Exam: deferred Rectal Exam: deferred Back Exam: normal inspection Extremity Exam: normal inspection Skin Exam: normal color Final Diagnosis/Problem List - Final Discharge Diagnosis/Problem (1) UTI (lower urinary tract infection) Current Visit: No Status: Acute Code(s): N39.0 - URINARY TRACT INFECTION, SITE NOT SPECIFIED (2) Sudden onset of severe abdominal pain Current Visit: Yes Status: Acute Code(s): R10.9 - UNSPECIFIED ABDOMINAL PAIN (3) Leukocytosis Current Visit: Yes Status: Acute Code(s): D72.829 - ELEVATED WHITE BLOOD CELL COUNT, UNSPECIFIED (4) Diabetes Current Visit: Yes Status: Acute Code(s): E11.9 - TYPE 2 DIABETES MELLITUS WITHOUT COMPLICATIONS (5) Anxiety Current Visit: Yes Status: Acute Code(s): F41.9 - ANXIETY DISORDER, UNSPECIFIED (6) Depression Current Visit: Yes Status: Acute Code(s): F32.A - DEPRESSION, UNSPECIFIED (7) Renal calculus, left Current Visit: No Status: Acute Code(s): N20.0 - CALCULUS OF KIDNEY (8) Hypokalemia Current Visit: Yes Status: Acute Code(s): E87.6 - HYPOKALEMIA - Discharge Disposition: Home, Self-Care Condition: Stable Prescriptions: No Action No Reportable Medications [No Reported Medications] Instructions: Polycystic ovary syndrome, Severe Abdominal Pain, Adult (DC) Follow up with: ELSI TORRES DO [ACTIVE STAFF] - 5 Days (PCOS) JESS ZELAYA MD [ACTIVE STAFF] - 1 Week DOCTOR,NO FAMILY [Primary Care Provider] - (3-5 days )
[2023-07-25 05:18] LABS: ANION GAP 8.8 MEQ/L (5-15); Calcium 8.7 mg/dL (8.4-10.2); Creatinine 1 0.46 mg/dL (0.52-1.04); EST GLOMERULAR FILTRATION RATE 132.8 ML/MIN; MAGNESIUM 2.1 mg/dL (1.6-2.3); Potassium 3.5 mmol/L (3.5-5.1)
[2023-07-25 06:58] VITALS: RESP 16
[2023-07-25] MEDS: Protonix 40MG Tablet PO SCH (09:10)
[2023-07-25 12:03] VITALS: BP 115/67; PULSE 92; TEMP 98.3; O2SAT 97
[2023-07-25] MEDS ORDERED: TYLENOL 325 MG PO PRN (12:27)
--- NOTE | 2023-07-25 12:41 | PCM.DCORD ---
- Discharge Disposition: Home, Self-Care Condition: Stable Prescriptions: New Cefdinir 300 mg PO BID 5 Days #10 cap PANTOPRAZOLE 40 mg Tablet [Protonix 40MG Tablet] 40 mg PO BID 30 Days #60 tablet Instructions: Polycystic ovary syndrome, Severe Abdominal Pain, Adult (DC) Follow up with: JESS ZELAYA MD [ACTIVE STAFF] - 1 Week DOCTOR,NO FAMILY [Primary Care Provider] - (3-5 days ) ELSI TORRES DO [ACTIVE STAFF] - 5 Days (PCOS)
== END 2023-07-25 13:52 | disposition home or self-care (01) ==
LOC: ED 14:45 → MED SURG 19:58
PROVIDERS: ADMIT Student in an Organized Health Care Education/Training Program; ATTEND Student in an Organized Health Care Education/Training Program
DX: N39.0 Urinary tract infection, site not specified (principal); B96.20 Unspecified Escherichia coli [E. coli] as the cause of diseases classified elsewhere; R11.10 Vomiting, unspecified; R19.7 Diarrhea, unspecified; R10.9 Unspecified abdominal pain; N20.0 Calculus of kidney; D72.829 Elevated white blood cell count, unspecified; E11.9 Type 2 diabetes mellitus without complications; F41.9 Anxiety disorder, unspecified; F32.A Depression, unspecified; E87.6 Hypokalemia
CPT/HCPCS: 36000; 36415; 74177; 76700; 76830; 80048; 80053; 80307; 81001; 83605; 83690; 83735; 84132; 84145; 84703; 85025; 87077; 87086; 87186; 96374; 96375; 99285; G0378; J0696; J1170; J1885; J2270; J2405; Q3014; A9270-GY